=== PATIENT | male | born 1985 | race Hispanic/Latino ===

== ENCOUNTER 2020-06-08 04:14 | Emergency (ER) | payer OTHER ==
[2020-06-08] MEDS ORDERED: Ibuprofen 800 MG TAB ONE (04:40)
--- NOTE | 2020-06-08 09:35 | RAD ---
Left knee 4 views HISTORY: Knee injury. FINDINGS: Very mild osteoarthritic changes. No acute fracture, dislocation, or fluid distention of th e suprapatellar bursa. IMPRESSION : No acute abnormalities are demonstrated.
--- NOTE | 2020-06-08 09:40 | RAD ---
Left shoulder 3 views HISTORY: Injury. FINDINGS: Acromioclavicular and glenohumeral alignment are maintained. No acute fracture, dislocation , or aggressive osseous erosions. Small bone island projects over the inferior medial aspect of the humeral head. IMPRESSION : No acute abnormalities are demonstrated.
== END 2020-06-08 05:15 ==
LOC: ERS 04:14
DX: S60.413A Abrasion of left middle finger, initial encounter (principal); M25.512 Pain in left shoulder; M25.562 Pain in left knee; F17.210 Nicotine dependence, cigarettes, uncomplicated; Y04.0XXA Assault by unarmed brawl or fight, initial encounter